=== PATIENT | female | born 1965 | race Caucasian/White ===

== ENCOUNTER 2022-05-12 14:35 | Emergency (ER) | payer SELFPAY ==
[~2022-05-12] VITALS: Ht 160 cm; Wt 88.9 kg
--- NOTE | 2022-05-12 14:41 | NUR ---
ARRIVAL PT AMBULATES TO ED6 WITH C/O CONGESTION, HEADACHE, BODYACHES, COUGH X 1 WEEK. PT STATES THAT SHE HAS TAKEN IBUPROFEN TODAY AT 1200 WITH NO RELIEF. PT STATES SHE HAD A LOW GRADE FEVER EARLIER TODAY, ON ASSESSMENT PT IS AFEBRILE OF 97.9. VITALS OBTAINED. NOTIFIED OF PTS ARRIVAL.
[2022-05-12 14:48] VITALS: BP 148/89
[2022-05-12] MEDS ORDERED: TORADOL ONE (15:25)
--- NOTE | 2022-05-12 15:26 | ER.PDOC ---
General Chief Complaint: General Complaint Stated Complaint: FEVER/HEADACHE TRAVEL OUT OF US: No (1500) Time seen by MD: 15:00 Source: patient Exam Limitations: no limitations History of Present Illness Initial Comments Patient is an 57 aged female who comes in with 2 to 3 days worth of upper respiratory infection-like symptoms. It is stated that the patient has had body aches, subjective fever, nonproductive cough, sore throat, and clear rhinorrhea and nasal congestion. It is stated that activity makes the symptoms worse and rest can make them better. Patient denies any other concerns or complaints unless otherwise specified in the review of systems. Allergies: Coded Allergies: No Known Allergies (Unverified , 05/12/22) Past Medical History Medical History: diabetes, hypertension, other Surgical History: cholecystectomy, hysterectomy, knee Family History Significant Family History: no pertinent family hx Social History Smoking: non-smoker Alcohol Use: none Drug Use: none Reviewed Nursing Reviewed: Vital Signs, Abn. Noted, Nursing Assessment Review of Systems Constitutional: fever, malaise EENTM: nose congestion, throat pain Respiratory: cough Cardiovascular: denies no symptoms reported, denies see HPI, denies chest pain, denies edema, denies palpitations, denies syncope, denies other Gastrointestinal: denies no symptoms reported, denies see HPI, denies abdominal pain, denies constipation, denies diarrhea, denies nausea, denies vomiting, denies other Genitourinary: denies no symptoms reported, denies see HPI, denies discharge, denies dysuria, denies frequency, denies hematuria, denies pain, denies other Musculoskeletal: denies no symptoms reported, denies see HPI, denies back pain, denies gout, denies joint pain, denies joint swelling, denies muscle pain, denies muscle stiffness, denies neck pain, denies other Skin: denies no symptoms reported, denies see HPI, denies change in color, denies change in hair/nails, denies dryness, denies lesions, denies lumps, denies rash, denies other Psychiatric/Neurological: denies no symptoms reported, denies see HPI, denies anxiety, denies depressed, denies emotional problems, denies headache, denies numbness, denies paresthesia, denies pre-existing deficit, denies seizure, denies tingling, denies tremors, denies weakness, denies other Hematologic/Lymphatic: denies no symptoms reported, denies see HPI, denies anemia, denies blood clots, denies easy bleeding, denies easy bruising, denies swollen glands, denies other Immunological/Allergic: denies no symptoms reported, denies see HPI, denies food allergy, denies grass allergy, denies mold allergy, denies pollen allergy, denies HIV/AIDS, denies transplant Physical Exam General Appearance: No Apparent Distress, WD/WN EENT: eyes nml inspection, nml ENT inspection Neck: Non-Tender, Full Range of Motion Respiratory: chest non-tender, lungs clear CVS: reg rate & rhythm, no murmur Gastrointestinal: Normal Bowel Sounds, Non Tender Back: Normal Inspection, No CVA Tenderness Extremities: Normal Range of Motion, Non-Tender Neurologic/Psychiatric: electrical equipment tester II-XII NML as Tested, No Motor/Sensory Deficits Skin: Normal Color Lymphatic: No Adenopathy Results/Orders Results/Orders Orders - PHILLY BERTRAND MD Covid19 Antigen Eli Cheri (05/12/22 14:47) Influenza A&B (05/12/22 14:47) Ketorolac Tromethamine (Toradol) (05/12/22 15:21) Vital Signs Date Time Temp Pulse Resp B/P (MAP) Pulse Ox O2 Delivery O2 Flow Rate FiO2 05/12/22 14:48 97.9 62 18 95 05/12/22 14:48 97.9 62 18 05/12/22 14:48 97.9 62 18 148/89 (108) 95 Room Air* 0 21 Laboratory Tests Test 05/12/22 14:45 Influenza Type A Antigen NEGATIVE (NEG) Influenza Type B Antigen NEGATIVE (NEG) SARS-CoV-2 Antigen (Rapid) NEGATIVE (NEGATIVE) Progress Progress Patient is here for upper respiratory infection-like symptoms. We will send off swabs will provide symptomatic control and will consider imaging if necessary. It is stated that it is understood when to follow-up and when to return to the ER. [id number] tested negative for everything we tested for here however will get ketoralac symptomatic control will discharge with Tessalon Perles and ketorolac ER DEPART Departure Time of Disposition: 15:25 Disposition: 01 HOME / SELF CARE / HOMELESS Impression: Primary Impression: Upper respiratory infection Condition: Improved Patient Instructions: Upper Respiratory Infection, Adult Referrals: PERCY HAGER (PCP) PRIMARY CARE PROVIDER Additional Instructions: Follow-up with your primary care in 1 week. If you have any new persistent or worsening symptoms or concerns seek medical attention. Take all medications as prescribed. Duration or Time Spent with Pa: 20 Problem Qualifiers Primary Impression: Upper respiratory infection URI type: unspecified viral URI Qualified Codes: J06.9 - Acute upper respiratory infection, unspecified PHILLY BERTRAND MD May 12, 2022 15:26
[2022-05-12] MEDS: TORADOL IM STA (15:30)
== END 2022-05-12 15:36 | disposition home or self-care (01) ==
LOC: ER 14:35
DX: J06.9 Acute upper respiratory infection, unspecified (principal); E11.9 Type 2 diabetes mellitus without complications; I10 Essential (primary) hypertension; Z90.49 Acquired absence of other specified parts of digestive tract; Z90.710 Acquired absence of both cervix and uterus; Z98.890 Other specified postprocedural states; Z20.822 Contact with and (suspected) exposure to COVID-19
CPT/HCPCS: 99283; 87426; 96372; 87804 ×2; J1885